=== PATIENT | female | born 1940 | race Caucasian/White ===

== ENCOUNTER → 2016-09-06 | Outpatient (CLI) | payer MEDICARE ==
[~2016-09-06] MED LIST: DENOSUMAB 60 MG/ML 1 ML SYRINGE SQ ONE
[2016-09-06 10:09] VITALS: BP 141/77; PULSE 71; RESP 15; TEMP 98.8
== END | disposition home or self-care (01) ==
LOC: PROCWHC3 09:51
PROVIDERS: ATTEND Family Medicine
DX: M81.0 Age-related osteoporosis without current pathological fracture (principal)
CPT/HCPCS: 96372; J0897

== ENCOUNTER → 2017-03-13 | Outpatient (CLI) | payer MEDICARE ==
[2017-03-13 12:18] LABS: CH 29.4; CHCM 32.7; HDW 2.38; HGB 14.5 gm/dL (11.4-16.0); MCH 29.9 pg (25.0-35.0); MCHC 32.9 g/dL (31.0-37.0); MCV 90.6 fL (80.0-100.0); Mean Platelet Volume 7.6; RBC 4.85 m/uL (3.80-5.40); RDW 13.5 % (11.5-15.5); WBC 5.6 k/uL (3.8-10.6)
[2017-03-13 13:59] LABS: ALT 41 U/L (9-52); AST 26 U/L (14-36); Alkaline Phosphatase 68 U/L (38-126); Anion Gap 6 mmol/L; Blood Urea Nitrogen 15 mg/dL (7-17); Calcium 9.4 mg/dL (8.4-10.2); Carbon Dioxide 28 mmol/L (22-30); Chloride 108 mmol/L (98-107); Cholesterol 170 mg/dL (<200); Glucose 104 mg/dL (74-99); HDL Cholesterol 66 mg/dL (40-60); Non-African American GFR(MDRD) >60 (>60 ml/min/1.73 sqM); Potassium 4.4 mmol/L (3.5-5.1); Sodium 142 mmol/L (137-145); Total Bilirubin 0.8 mg/dL (0.2-1.3); Total Protein 6.6 g/dL (6.3-8.2)
== END | disposition home or self-care (01) ==
LOC: LABWHC1 11:38
PROVIDERS: ATTEND Family Medicine
DX: E78.2 Mixed hyperlipidemia (principal); E03.9 Hypothyroidism, unspecified
CPT/HCPCS: 36415; 80053; 80061; 84439; 84443; 84481; 85027

== ENCOUNTER → 2017-03-14 | Outpatient (CLI) | payer MEDICARE ==
[2017-03-14 11:11] VITALS: BP 149/73; PULSE 73; RESP 16; TEMP 98.6
== END | disposition home or self-care (01) ==
LOC: PROCWHC3 10:44
PROVIDERS: ATTEND Family Medicine
DX: M81.0 Age-related osteoporosis without current pathological fracture (principal)
CPT/HCPCS: 96372; J0897

== ENCOUNTER → 2017-09-20 | Outpatient (CLI) | payer MEDICARE ==
[2017-09-20 11:08] VITALS: BP 182/86; PULSE 61; RESP 16; TEMP 98.2
== END | disposition home or self-care (01) ==
LOC: PROCWHC3 10:49
PROVIDERS: ATTEND Family Medicine
DX: M81.0 Age-related osteoporosis without current pathological fracture (principal)
CPT/HCPCS: 96372; J0897

== ENCOUNTER → 2018-03-21 | Outpatient (CLI) | payer MEDICARE ==
--- NOTE | 2018-03-21 18:30 | BD ---
EXAMINATION TYPE: Axial Bone Density DATE OF EXAM: 03/21/2018 COMPARISON: NONE CLINICAL HISTORY: 77-year-old female known osteoporosis Height: 5'3 Weight: 140 FRAX RISK QUESTIONS: History of Fracture in Adulthood: y Secondary Osteoporosis: 3. Menopause before 47: y RISK FACTORS HISTORY OF: Family History of Osteoporosis: y Postmenopausal woman: y MEDICATIONS: Thyroid Medications: Which medication: Synthroid How Lon years Osteoporosis Medications: Which medication: Other How Lon years Additional Medications: calcium, jittery, heart , blood pressure Additional History: breast cancer 2010, chemotherapy EXAM MEASUREMENTS: Bone mineral densitometry was performed using the [employer] System. Bone mineral density as measured about the Lumbar spine is: ----- L1-L4(G/cm2): 0.963 T Score Values are as follows: ----- L2: -2.1 ----- L3: -2.3 ----- L4: -1.8 ----- L1-L4: -1.8 Bone mineral density about the R hip (g/cm2): 0.740 Bone mineral density about the L hip (g/cm2): 0.765 T Score values are as follows: -----R Neck: -2.1 -----L Neck: -2.0 -----R Total: -1.7 -----L Total: -1.3 IMPRESSION: Osteopenia (T Score between -2.5 and -1). There is slightly increased risk of fracture and the patient may be considered for treatment. Re-Screen 2-5 years. NOTE: T-SCORE=SD OF THE YOUNG ADULT MEAN.
== END | disposition home or self-care (01) ==
LOC: RADBDWWP 14:34
PROVIDERS: ATTEND Family Medicine
DX: M81.0 Age-related osteoporosis without current pathological fracture (principal)
CPT/HCPCS: 77080

== ENCOUNTER → 2018-03-25 | Outpatient (CLI) | payer MEDICARE ==
[~2018-03-25] MED LIST changes: +DENOSUMAB 60 MG/ML 1 ML SYRINGE SQ NR; -DENOSUMAB 60 MG/ML 1 ML SYRINGE SQ ONE
[2018-03-25 13:01] VITALS: BP 145/82; PULSE 85; RESP 16; TEMP 98.4
== END | disposition home or self-care (01) ==
LOC: PROCWHC3 12:40
PROVIDERS: ATTEND Family Medicine
DX: M81.0 Age-related osteoporosis without current pathological fracture (principal)
CPT/HCPCS: 96372; J0897

== ENCOUNTER → 2018-09-24 | Outpatient (CLI) | payer MEDICARE ==
[~2018-09-24] MED LIST changes: -DENOSUMAB 60 MG/ML 1 ML SYRINGE SQ NR; +DENOSUMAB 60 MG/ML 1 ML SYRINGE SQ ONE
[2018-09-24 11:09] VITALS: BP 148/78; PULSE 72; RESP 16; TEMP 98.4
== END | disposition home or self-care (01) ==
LOC: PROCWHC3 10:51
PROVIDERS: ATTEND Family Medicine
DX: M81.0 Age-related osteoporosis without current pathological fracture (principal)
CPT/HCPCS: 96372; J0897

== ENCOUNTER → 2019-01-21 | Outpatient (CLI) | payer MEDICARE ==
--- NOTE | 2019-01-21 14:14 | CT ---
EXAMINATION TYPE: CT sinus wo con DATE OF EXAM: 01/21/2019 COMPARISON: None HISTORY: 78-year-old female Chronic sinusitis. CT DLP: 490 mGycm Automated exposure control for dose reduction was used. TECHNIQUE: Noncontrast axial views of the paranasal sinuses were obtained. Coronal reconstructions pe rformed. FINDINGS: PARANASAL SINUSES: Trace mucosal thickening anterior ethmoid air cells. Mild mucosal thickening bilateral sphenoid sinuses. Some layering frothy material may be present with in. Otherwise, the frontal and maxillary sinuses are clear and well pneumatized. Reactive paula- osteogenesis is not seen. There is no destruction of the osseous go of the paranasal sinuses. THE NASAL CAVITY: The osteomeatal complexes are patent. Undulating nasal septum. The visualized intracranial structures and orbits are normal in appearance. Mastoid air cells and middle ear cavities are well pneumatized. Reformatted images confirm above findings. IMPRESSION: 1. Some frothy layering fluid in the bilateral sphenoid sinuses can be seen with an acute sinusitis. Clinically correlate. 2. Otherwise, there is only trace mucosal thickening within the anterior right ethmoid air cells. 3. Undulating nasal septum
== END | disposition home or self-care (01) ==
LOC: RADCTMAIN 10:56
PROVIDERS: ATTEND Otolaryngology
DX: J01.30 Acute sphenoidal sinusitis, unspecified (principal); J34.89 Other specified disorders of nose and nasal sinuses
CPT/HCPCS: 70486

== ENCOUNTER → 2019-04-02 | Outpatient (CLI) | payer MEDICARE ==
[2019-04-02 11:12] VITALS: BP 133/79; PULSE 75; RESP 16; TEMP 98.1
== END | disposition home or self-care (01) ==
LOC: PROCWHC3 10:47
PROVIDERS: ATTEND Family Medicine
DX: M81.0 Age-related osteoporosis without current pathological fracture (principal)

== ENCOUNTER 2019-10-30 17:11 | Emergency (ER) | payer MEDICARE ==
[2019-10-30 17:37] VITALS: RESP 18
[2019-10-30] MEDS ORDERED: ACETAMINOPHEN TAB 500 MG TAB PO STA (17:49)
[2019-10-30] MEDS ORDERED: SODIUM CHLORIDE 0.9% 1,000 ML IV STA (17:49)
--- NOTE | 2019-10-30 17:56 | ED ---
Fever HPI - General Chief Complaint: Fever Stated Complaint: fever/diarrhea Time Seen by Provider: 10/30/19 17:39 Source: patient Mode of arrival: ambulatory Limitations: no limitations - History of Present Illness Initial Comments: Patient is 78-year-old female presenting to emergency Department with a chief complaint of a fever and diarrhea. Patient states the symptoms began about 2 days ago when she developed a fever. Patient reports that after she had nonbloody diarrhea but denies nausea or vomiting. States she is feeling generally fatigued. States she is otherwise been hydrating with Gatorade and taking Tylenol at home. States her daughter recently came back from [place] but but is unaware whether she was infected with Covid. She also reports a mild headache with gradual onset since yesterday. Patient states her mouth feels dry. Patient denies and chest pain, cough, shortness of breath. Denies any abdominal pain back pain vaginal or urinary symptoms. - Related Data Home Medications Medication Instructions Recorded Confirmed Levothyroxine Sodium [Synthroid] 100 mcg PO DAILY 04/02/14 10/30/19 Primidone [Mysoline] 50 mg PO TID 04/02/14 10/30/19 Simvastatin 20 mg PO DAILY 04/02/14 10/30/19 Alendronate Sodium 70 mg PO FR 10/30/19 10/30/19 Atenolol [Tenormin] 50 mg PO DAILY 10/30/19 10/30/19 Fluticasone/Salmeterol [Advair 1 inhalation PO RT-BID 10/30/19 10/30/19 250-50 Diskus] amLODIPine [Norvasc] 10 mg PO DAILY 10/30/19 10/30/19 Allergies Allergy/AdvReac Type Severity Reaction Status Date / Time No Known Allergies Allergy Verified 10/30/19 18:41 Review of Systems ROS Statement: Those systems with pertinent positive or pertinent negative responses have been documented in the HPI. ROS Other: All systems not noted in ROS Statement are negative. Past Medical History Past Medical History: Asthma, Cancer, Deep Vein Thrombosis (DVT), Hyperlipidemia, Hypertension, Osteoarthritis (OA), Thyroid Disorder Additional Past Medical History / Comment(s): TREMORS, HANDS. Rt breast cancer - 2010/chemo hx DVT -PE 2009 after rt knee arthroscope. OSTEOPOROSIS. History of Any Multi-Drug Resistant Organisms: None Reported Past Surgical History: Breast Surgery, Cholecystectomy, Hernia Repair, Hysterectomy, Orthopedic Surgery, Tonsillectomy Additional Past Surgical History / Comment(s): RIGHT MASTECTOMY. rt inguinal hernia repair- 1969's. RK EYE SURGERY. Past Anesthesia/Blood Transfusion Reactions: Postoperative Nausea & Vomiting (PONV) Additional Past Anesthesia/Blood Transfusion Reaction / Comment(s): post sugery- 1973/ choley/ jaundice - and had blood transfusion Past Psychological History: No Psychological Hx Reported Smoking Status: Never smoker Past Alcohol Use History: Occasional Past Drug Use History: None Reported - Past Family History Father Family Medical History: Cancer Sister(s) Family Medical History: Cancer Son(s) Family Medical History: Cancer Additional Family Medical History / Comment(s): melanoma General Exam Limitations: no limitations General appearance: alert, in no apparent distress Head exam: Present: atraumatic, normocephalic, normal inspection Eye exam: Present: normal appearance, PERRL, EOMI Pupils: Present: normal accommodation ENT exam: Present: normal exam, normal oropharynx, mucous membranes dry, TM's normal bilaterally, normal external ear exam Neck exam: Present: normal inspection, full ROM. Absent: tenderness Respiratory exam: Present: normal lung sounds bilaterally. Absent: respiratory distress, wheezes Cardiovascular Exam: Present: regular rate, normal rhythm, normal heart sounds GI/Abdominal exam: Present: soft, normal bowel sounds. Absent: distended, tenderness, guarding, rebound, rigid, diminished bowel sounds, hyperactive bowel sounds, hypoactive bowel sounds, organomegaly Extremities exam: Present: normal inspection, full ROM, normal capillary refill. Absent: tenderness Back exam: Present: normal inspection, full ROM. Absent: tenderness, CVA t enderness (R), CVA tenderness (L) Neurological exam: Present: alert, oriented X3 Psychiatric exam: Present: normal affect, normal mood Skin exam: Present: warm, dry, intact, normal color Course Vital Signs 10/30/19 10/30/19 10/30/19 17:34 18:09 18:42 Temperature 103.1 F H 102.0 F H Pulse Rate 101 H 103 H 98 Respiratory 18 18 18 Rate Blood Pressure 138/81 154/77 144/69 O2 Sat by Pulse 93 L 95 93 L Oximetry Medical Decision Making - Medical Decision Making Patient is 78-year-old female presenting to emergency Department with a chief complaint of fever and diarrhea. Symptoms been ongoing for the past 2 days. Patient was given 1 L of fluids and she states that she feels much better. States her headache is gradually improved. I suspect the fatigue is secondary to dehydration with trace ketones located in the urine. CBC and CMP is unremarkable. Chest x-ray shows cardiomegaly but no signs of pneumonia. Strict return parameters were thoroughly discussed with patient was understanding and agreeable. She was advised several isolate to self isolate until she received results of the cardiac testing. She was advised to continue taking Tylenol only for the fever. She was advised to drink plenty of fluids, preferably Pedialyte or Gatorade. Return parameters were thoroughly discussed the patient is icing and agreeable. Case discussed with physician. - Lab Data Result diagrams: 10/30/19 18:00 10/30/19 18:00 Lab Results 10/30/19 10/30/19 10/30/19 Range/Units 18:00 18:00 18:00 WBC 9.6 (3.8-10.6) k/uL RBC 4.95 (3.80-5.40) m/uL Hgb 15.1 (11.4-16.0) gm/dL Hct 45.3 (34.0-46.0) % MCV 91.5 (80.0-100.0) fL MCH 30.6 (25.0-35.0) pg MCHC 33.4 (31.0-37.0) g/dL RDW 13.1 (11.5-15.5) % Plt Count 177 (150-450) k/uL Neutrophils % 81 % Lymphocytes % 12 % Monocytes % 5 % Eosinophils % 1 % Basophils % 0 % Neutrophils # 7.7 (1.3-7.7) k/uL Lymphocytes # 1.1 (1.0-4.8) k/uL Monocytes # 0.5 (0-1.0) k/uL Eosinophils # 0.1 (0-0.7) k/uL Basophils # 0.0 (0-0.2) k/uL Sodium 136 L (137-145) mmol/L Potassium 3.6 (3.5-5.1) mmol/L Chloride 102 (98-107) mmol/L Carbon Dioxide 26 (22-30) mmol/L Anion Gap 8 mmol/L BUN 10 (7-17) mg/dL Creatinine 0.73 (0.52-1.04) mg/dL Est GFR (CKD-EPI)AfAm >90 (>60 ml/min/1.73 sqM) Est GFR (CKD-EPI)NonAf 81 (>60 ml/min/1.73 sqM) Glucose 126 H (74-99) mg/dL Plasma Lactic Acid Andi 1.0 (0.7-2.0) mmol/L Calcium 9.3 (8.4-10.2) mg/dL Total Bilirubin 0.8 (0.2-1.3) mg/dL AST 39 H (14-36) U/L ALT 29 (4-34) U/L Alkaline Phosphatase 86 (38-126) U/L Total Protein 6.8 (6.3-8.2) g/dL Albumin 4.2 (3.5-5.0) g/dL Urine Color Urine Appearance (Clear) Urine pH (5.0-8.0) Ur Specific [place] (1.001-1.035) Urine Protein (Negative) Urine Glucose (UA) (Negative) Urine Ketones (Negative) Urine Blood (Negative) Urine Nitrite (Negative) Urine Bilirubin (Negative) Urine Urobilinogen (<2.0) mg/dL Ur Leukocyte Esterase (Negative) Urine RBC (0-5) /hpf Urine WBC (0-5) /hpf Ur Squamous Epith Cells (0-4) /hpf Urine Mucus (None) /hpf 10/30/19 Range/Units 18:00 WBC (3.8-10.6) k/uL RBC (3.80-5.40) m/uL Hgb (11.4-16.0) gm/dL Hct (34.0-46.0) % MCV (80.0-100.0) fL MCH (25.0-35.0) pg MCHC (31.0-37.0) g/dL RDW (11.5-15.5) % Plt Count (150-450) k/uL Neutrophils % % Lymphocytes % % Monocytes % % Eosinophils % % Basophils % % Neutrophils # (1.3-7.7) k/uL Lymphocytes # (1.0-4.8) k/uL Monocytes # (0-1.0) k/uL Eosinophils # (0-0.7) k/uL Basophils # (0-0.2) k/uL Sodium (137-145) mmol/L Potassium (3.5-5.1) mmol/L Chloride (98-107) mmol/L Carbon Dioxide (22-30) mmol/L Anion Gap mmol/L BUN (7-17) mg/dL Creatinine (0.52-1.04) mg/dL Est GFR (CKD-EPI)AfAm (>60 ml/min/1.73 sqM) Est GFR (CKD-EPI)NonAf (>60 ml/min/1.73 sqM) Glucose (74-99) mg/dL Plasma Lactic Acid Andi (0.7-2.0) mmol/L Calcium (8.4-10.2) mg/dL Total Bilirubin (0.2-1.3) mg/dL AST (14-36) U/L ALT (4-34) U/L Alkaline Phosphatase (38-126) U/L Total Protein (6.3-8.2) g/dL Albumin (3.5-5.0) g/dL Urine Color Yellow Urine Appearance Clear (Clear) Urine pH 7.0 (5.0-8.0) Ur Specific [place] 1.017 (1.001-1.035) Urine Protein 1+ H (Negative) Urine Glucose (UA) Negative (Negative) Urine Ketones Negative (Negative) Urine Blood Trace H (Negative) Urine Nitrite Negative (Negative) Urine Bilirubin Negative (Negative) Urine Urobilinogen <2.0 (<2.0) mg/dL Ur Leukocyte Esterase Trace H (Negative) Urine RBC 5 (0-5) /hpf Urine WBC 3 (0-5) /hpf Ur Squamous Epith Cells 1 (0-4) /hpf Urine Mucus Rare H (None) /hpf Disposition Clinical Impression: Fever, Diarrhea Disposition: HOME SELF-CARE Condition: Stable Instructions (If sedation given, give patient instructions): Fever in Adults (E D) Additional Instructions: Drink plenty of fluids, preferably Gatorade or Pedialyte. Self-isolation until you receive results of Covid testing. Take Tylenol only for fever. Return to emergency department if symptoms worsen. Follow with the primary care. Is patient prescribed a controlled substance at d/c from ED?: No Referrals: José Manuel Correa MD [Primary Care Provider] - 1-2 days Time of Disposition: 19:04
[2019-10-30 18:10] LABS: Basophils % (A) 0 %; Eosinophils # (A) 0.1 k/uL (0-0.7); Eosinophils % (A) 1 %; HCT 45.3 % (34.0-46.0); HGB 15.1 gm/dL (11.4-16.0); Lymphocytes # (A) 1.1 k/uL (1.0-4.8); Lymphocytes % (A) 12 %; MCH 30.6 pg (25.0-35.0); MCHC 33.4 g/dL (31.0-37.0); MCV 91.5 fL (80.0-100.0); Mean Platelet Volume 7.8; Monocytes # (A) 0.5 k/uL (0-1.0); Monocytes % (A) 5 %; Neutrophils # (A) 7.7 k/uL (1.3-7.7); Neutrophils % (A) 81 %; Platelet Count 177 k/uL (150-450); RBC 4.95 m/uL (3.80-5.40); RDW 13.1 % (11.5-15.5); WBC 9.6 k/uL (3.8-10.6)
[2019-10-30 18:15] LABS: Appearance,Urine Clear (Clear); Bilirubin,Urine Negative (Negative); Blood,Urine Trace (Negative); Color,Urine Yellow; Glucose,Urine (UA) Negative (Negative); Ketones,Urine Negative (Negative); Leukocyte Esterase,Urine Trace (Negative); Mucus,Urine Rare /hpf; Nitrite,Urine Negative (Negative); Protein,Urine 1+ (Negative); RBC,Urine 5 /hpf (0-5); Specific Gravity,Urine 1.017 (1.001-1.035); Squamous Epithelial Cell,Urine 1 /hpf (0-4); Urobilinogen,Urine <2.0 mg/dL (<2.0); WBC,Urine 3 /hpf (0-5)
[2019-10-30 18:24] LABS: ALT 29 U/L (4-34); AST 39 U/L (14-36); African American GFR (CKD) >90 (>60 ml/min/1.73 sqM); Albumin 4.2 g/dL (3.5-5.0); Alkaline Phosphatase 86 U/L (38-126); Anion Gap 8 mmol/L; Blood Urea Nitrogen 10 mg/dL (7-17); Calcium 9.3 mg/dL (8.4-10.2); Carbon Dioxide 26 mmol/L (22-30); Chloride 102 mmol/L (98-107); Glucose 126 mg/dL (74-99); Non-African American GFR(CKD) 81 (>60 ml/min/1.73 sqM); Potassium 3.6 mmol/L (3.5-5.1); Sodium 136 mmol/L (137-145); Total Bilirubin 0.8 mg/dL (0.2-1.3); Total Protein 6.8 g/dL (6.3-8.2)
--- NOTE | 2019-10-30 18:24 | XR ---
EXAMINATION TYPE: XR chest 1V portable DATE OF EXAM: 10/30/2019 COMPARISON: Prior chest x-ray 11/28/2010 HISTORY: Suspected Covid, fever and diarrhea TECHNIQUE: Single frontal view of the chest is obtained. FINDINGS: No evident airspace disease, pneumothorax, or pleural effusion. Heart size may be accentua adelfo at least in part by rotation. Port-A-Cath has been removed. Pulmonary vascularity and ty are un changed. IMPRESSION: Suspect cardiomegaly.
[2019-10-30 19:29] VITALS: BP 128/71; PULSE 93; TEMP 102.4
== END 2019-10-30 19:28 | disposition home or self-care (01) ==
LOC: EC 17:11
DX: R50.9 Fever, unspecified (principal); R19.7 Diarrhea, unspecified; R51 Headache; R53.83 Other fatigue; I11.9 Hypertensive heart disease without heart failure; E07.9 Disorder of thyroid, unspecified; E78.5 Hyperlipidemia, unspecified; J45.909 Unspecified asthma, uncomplicated; Z79.51 Long term (current) use of inhaled steroids; Z79.890 Hormone replacement therapy; Z79.899 Other long term (current) drug therapy; Z86.711 Personal history of pulmonary embolism; Z86.718 Personal history of other venous thrombosis and embolism; Z85.3 Personal history of malignant neoplasm of breast; Z90.11 Acquired absence of right breast and nipple
CPT/HCPCS: 99283; 96360; 36415; 80053; 83605; 85025; 81001; 87040; 71045; U0003

== ENCOUNTER → 2021-10-25 | Outpatient (CLI) | payer MEDICARE ==
--- NOTE | 2021-10-25 14:06 | US ---
EXAMINATION TYPE: US venous doppler duplex LE RT DATE OF EXAM: 10/25/2021 1:16 PM COMPARISON: NONE CLINICAL HISTORY: I80.9 M54.16 M17.11 M25.561 M17.12 M25.562 M71.21. Right leg pain. Hx dvt x 10 yea rs ago. Not on blood thinners. No redness. No swelling. SIDE PERFORMED: Right TECHNIQUE: The lower extremity deep venous system is examined utilizing real time linear array sonog jose m with graded compression, doppler sonography and color-flow sonography. VESSELS IMAGED: Common Femoral Vein Deep Femoral Vein Greater Saphenous Vein * Femoral Vein Popliteal Vein Small Saphenous Vein * Proximal Calf Veins (* superficial vessels) Right Leg: Negative for DVT. Femoral vein appears small in size. IMPRESSION: No evidence for DVT.
== END | disposition home or self-care (01) ==
LOC: RADUSWWP 12:51
PROVIDERS: ATTEND Orthopaedic Surgery
DX: M25.561 Pain in right knee (principal); M71.21 Synovial cyst of popliteal space [Baker], right knee

== ENCOUNTER → 2022-11-10 | Outpatient (CLI) | payer MEDICARE ==
[2022-11-10 15:19] LABS: African American GFR (CKD) 85 (>60 ml/min/1.73 sqM); Blood Urea Nitrogen 19 mg/dL (7-17); Non-African American GFR(CKD) 74 (>60 ml/min/1.73 sqM)
--- NOTE | 2022-11-12 21:53 | CT ---
EXAMINATION TYPE: CT angio neck DATE OF EXAM: 11/10/2022 COMPARISON: None HISTORY: 81-year-old female I72.0, right neck anterior nodule TECHNIQUE: Contiguous axial scanning of the neck performed with IV Contrast, patient injected with 10 0 mL of Isovue 370. Coronal/sagittal reconstructions performed. 3-D reconstructions generated on a de dicated independent workstation. CT DLP: 222.2 mGycm Automated exposure control for dose reduction was used. FINDINGS: 1.1 cm nodule inferior right thyroid lobe. Right apical pleural parenchymal scarring. There is some nodularity along the left lingual tonsil and along the median epiglottic fold, axial im age 89. Moderate mucosal thickening left sphenoid sinus with small air-fluid level. Slight leftward nasal sep anuja deviation. Patient's globes are myopic. Mildly enlarged caliber to the main right and left pulmonary arteries measuring up to 2.8 cm may refl ect underlying pulmonary artery hypertension. Underlying breast implants. The vertebral arteries are codominant and patent throughout their course. The right vertebral artery becomes hypoplastic after the PICA takeoff. There is mild atherosclerotic change at the left carotid bifurcation with mild, less than 25% narrowi ng at the origin of the left ICA by NASCET criteria. Otherwise, both common and internal carotid arteries are patent. The proximal right internal carotid artery is tortuous and courses anterior to the right sternocleido mastoid muscle. Overlying palpable marker. Mild to moderate spondylotic change which the lower cervical spine. IMPRESSION: 1. MILD ATHEROSCLEROTIC CHANGE AT THE LEFT CAROTID BIFURCATION WITH MILD, LESS THAN 25% PROXIMAL LEFT ICA STENOSIS. NO HEMODYNAMICALLY SIGNIFICANT INTERNAL CAROTID ARTERY STENOSIS ON EITHER SIDE. 2. TORTUOUS PROXIMAL RIGHT ICA. IT COURSES ANTERIOR TO THE RIGHT STERNOCLEIDOMASTOID MUSCLE IN A SUPE RFICIAL LOCATION. THERE IS AN OVERLYING PALPABLE MARKER. 3. 1.1 CM INFERIOR RIGHT THYROID LOBE NODULE CAN BE FURTHER EVALUATED WITH THYROID ULTRASOUND. 4. SLIGHT NODULARITY ALONG THE MEDIAN EPIGLOTTIC FOLD. CONSIDER DIRECT VISUALIZATION TO EXCLUDE ANY M UCOSAL LESION HERE. 5. POSSIBLE ACUTE ON CHRONIC LEFT SPHENOID SINUSITIS.
== END | disposition home or self-care (01) ==
LOC: RADCTMAIN 14:25
PROVIDERS: ATTEND Internal Medicine Geriatric Medicine
DX: I72.0 Aneurysm of carotid artery (principal)
CPT/HCPCS: 82565; 84520; 70498; 36415; Q9967

== ENCOUNTER → 2022-11-29 | Outpatient (CLI) | payer MEDICARE ==
[2022-11-29 11:14] LABS: African American GFR (CKD) 89 (>60 ml/min/1.73 sqM); Blood Urea Nitrogen 21 mg/dL (7-17); Non-African American GFR(CKD) 77 (>60 ml/min/1.73 sqM)
--- NOTE | 2022-11-29 11:48 | CT ---
EXAMINATION TYPE: CT chest w con DATE OF EXAM: 11/29/2022 COMPARISON: None HISTORY: Pulmonary nodule Automated exposure control for dose reduction was used. CONTRAST: CT scan of the chest is performed with IV Contrast, patient injected with 100 mL of Isovue 300. FINDINGS: LUNGS: Left basilar pulmonary nodule measuring 6.5 mm. No additional pulmonary nodularity seen. Mild hyperinflation with COPD. There is no pleural effusion or pneumothorax seen. The tracheobronchial tr ee is patent. MEDIASTINUM: There are no greater than 1 cm hilar or mediastinal lymph nodes. No pericardial effusi on is seen. 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 Mild scattered atheromatous changes seen. The hea rt is not enlarged. UPPER ABDOMEN: Left hepatic lobe pneumobilia. OTHER: Right-sided mastectomy changes implant in place. IMPRESSION: 1. Left basilar solitary pulmonary nodule. Six-month follow-up recommended with low dose CT.
== END | disposition home or self-care (01) ==
LOC: RADCTMAIN 09:55
PROVIDERS: ATTEND Family Medicine
DX: R91.1 Solitary pulmonary nodule (principal)
CPT/HCPCS: 82565; 84520; 71260; 36415; Q9967

== ENCOUNTER → 2023-12-05 | Outpatient (CLI) | payer MEDICARE ==
--- NOTE | 2024-01-02 15:10 | US ---
Lana Day ID: [id number] : 1940 EXAMINATION TYPE: US carotid duplex BILAT DATE OF EXAM: 12/05/2023 COMPARISON: NONE CLINICAL INDICATION: 83-year-old female left carotid stenosis, history of high blood pressure and hig h cholesterol TECHNIQUE: Carotid duplex ultrasound examination. Indirect Doppler criteria was utilized. FINDINGS: EXAM MEASUREMENTS: RIGHT: Peak Systolic Velocity (PSV) cm/sec ----- Right CCA: 73.4 ----- Right ICA: 135 ----- Right ECA: 79.9 ICA/CCA ratio: 1.5 RIGHT: End Diastole cm/sec ----- Right CCA: 17.5 ----- Right ICA: 24.0 ----- Right ECA: 11.0 LEFT: Peak Systolic Velocity (PSV) cm/sec ----- Left CCA: 86.3 ----- Left ICA: 85.8 ----- Left ECA: 70.9 ICA/CCA ratio: 0.9 LEFT: End Diastole cm/sec ----- Left CCA: 19.7 ----- Left ICA: 80.4 ----- Left ECA: 8.4 VERTEBRALS (direction of flow): Right Vertebral: Antegrade Left Vertebral: Antegrade MANAGEMENT INSTRUCTOR NOTES: Mild atherosclerotic plaque within the bilateral carotid bulbs. IMPRESSION: No hemodynamically significant internal carotid artery stenosis on either side. Mild, less than 50% n arrowing right ICA. Criteria for Assigning % of Stenosis / Diameter reduction (Estimation based on the indirect measurements of the internal carotid artery velocities (ICA PSV). 1. Normal (no stenosis)=ICA PSV < 125 cm/s: ratio < 2.0: ICA EDV<40 cm/s. 2. Less than 50% stenosis=ICA PSV < 125 cm/s: ratio < 2.0: ICA EDV<40 cm/s. 3. 50 to 69% stenosis=ICA PSV of 125 to 230 cm/s: ration 2.0 ? 4.0: ICA EDV 40-100 cm/s. 4. Greater than 70% stenosis to near occlusion= ICA PSV > 230 cm/s: ratio > 4.0: ICA EDV > 100 cm/s. 5. Near occlusion= ICA PSV velocities may be low or undetectable: variable ratio and ICA EDV. 6. Total occlusion=unable to detect flow.
== END | disposition home or self-care (01) ==
LOC: RADUSWWP 18:11
PROVIDERS: ATTEND Family Medicine
DX: I65.22 Occlusion and stenosis of left carotid artery (principal); E78.00 Pure hypercholesterolemia, unspecified
CPT/HCPCS: 93880

== ENCOUNTER → 2024-02-15 | Outpatient (CLI) | payer MEDICARE ==
[2024-02-15 13:13] LABS: African American GFR (CKD) >90 (>60 ml/min/1.73 sqM); Blood Urea Nitrogen 12 mg/dL (7-17); Non-African American GFR(CKD) 82 (>60 ml/min/1.73 sqM)
--- NOTE | 2024-02-15 14:13 | CT ---
EXAMINATION TYPE: CT chest w con CT DLP: 143.5 mGycm, Automated exposure control for dose reduction was used. DATE OF EXAM: 02/15/2024 2:03 PM COMPARISON: CT chest 11/29/2022 CLINICAL INDICATION:Female, 83 years old with history of R91.1 SOLITARY PULM NOD; PHH, f/u nodules TECHNIQUE: Multiple axial images were obtained through the chest following the administration of 100 cc of Isovue 300. . Coronal and sagittal reformats reviewed. FINDINGS: LUNGS/ PLEURA: No pleural effusion, pneumothorax, focal consolidation. Mild centrilobular emphysemato us changes. Minimal biapical pleural-parenchymal scarring. Stable right middle lobe 4 mm pulmonary n odule (series 4, image 47). New anterior right middle lobe 6.4 mm pulmonary nodule (series 4, image 4 2). New peripheral right upper lobe 4.5 mm pulmonary nodule (series 4, image 23). Stable left lower l obe 7.1 mm pulmonary nodule (series 4, image 53). AIRWAY: Patent and unremarkable.. HEART: The heart is mildly increased in size.. No pericardial effusion. MEDIASTINUM: No evidence of adenopathy. VASCULATURE: No aortic aneurysm. Stable ectasia of the ascending thoracic aorta measuring up to 3.8 cm. Mild atherosclerotic calcification of the aorta and its branches. MUSCULOSKELETAL: No acute osseous abnormalities. Mild multilevel degenerative disc disease. SOFT TISSUES/LYMPH NODES: Right mastectomy with breast implant. LOWER NECK: Hypodense right inferior thyroid lobe 8 mm nodule. Adjacent right macrocalcification. UPPER ABDOMEN: Postcholecystectomy changes with pneumobilia redemonstrated. IMPRESSION: Few stable pulmonary nodules with new right middle and right upper lobe pulmonary nodules with larges t measuring up to 6.4 mm. Follow-up CT chest in 3-6 months is recommended. [facility], , 02/15/2024 2:11 PM
== END | disposition home or self-care (01) ==
LOC: RADCTMAIN 12:25
PROVIDERS: ATTEND Family Medicine
DX: R91.8 Other nonspecific abnormal finding of lung field (principal)
CPT/HCPCS: 82565; 84520; 71260; 36415; Q9967

== ENCOUNTER → 2024-07-21 | Outpatient (CLI) | payer MEDICARE ==
[2024-07-21 10:35] LABS: African American GFR (CKD) >90 (>60 ml/min/1.73 sqM); Blood Urea Nitrogen 10 mg/dL (7-17); Non-African American GFR(CKD) 86 (>60 ml/min/1.73 sqM)
--- NOTE | 2024-07-21 12:36 | CT ---
EXAMINATION TYPE: CT chest w con DATE OF EXAM: 07/21/2024 COMPARISON: Prior chest CT February 15, 2024 and older study of November 29, 2022 CLINICAL INDICATION: Female, 83 years old with history of R91.1 LUNG NODULE, F/U LUNG NODULE TECHNIQUE: CT scan of the thorax is performed following with IV Contrast, patient injected with 100m l mL of Isovue 300. CT DLP: 250 mGycm. Automated Exposure Control for Dose Reduction was Utilized. FINDINGS: LUNGS: Mild Emphysematous change is redemonstrated. Minimal right apical pleural-parenchymal scarring . Stable right middle lobe 4 mm pulmonary nodule (series 4, image 46). Less prominent anterior right middle lobe 3-4 mm pulmonary nodule (series 4, image 42). Stable left basilar 7 mm pulmonary nodule (series 4, image 50). . Mild parenchymal fibrosis bilaterally redemonstrated. No new greater than 4 mm noncalcified pulmona ry nodules. HEART: Mild cardiomegaly redemonstrated. No significant coronary artery calcifications. MEDIASTINUM: There are no greater than 1 cm hilar or mediastinal lymph nodes. No pericardial effusi on is seen. Pectus excavatum deformity again seen. OTHER: Right-sided breast implant redemonstrated. Heterogeneous multinodular thyroid with bilateral t iny calcified nodules is redemonstrated. Stable 1.2 cm ring enhancing lower pole right thyroid nodule coronal image 28. IMPRESSION: Stable scattered small bilateral nodules. No suspicious new or enlarging pulmonary nodule s. [facility], , 07/21/2024 12:33 PM
== END | disposition home or self-care (01) ==
LOC: RADCTMAIN 09:50
PROVIDERS: ATTEND Family Medicine
DX: R91.1 Solitary pulmonary nodule (principal); I51.7 Cardiomegaly
CPT/HCPCS: 82565; 84520; 71260; 36415; Q9967

== ENCOUNTER → 2024-07-24 | Outpatient (CLI) | payer MEDICARE ==
--- NOTE | 2024-07-24 15:58 | US ---
EXAMINATION TYPE: US kidneys/renal and bladder DATE OF EXAM: 07/24/2024 COMPARISON: NONE CLINICAL INDICATION: Female, 83 years old with history of N20.0 CALCULUS OF KIDNEY; small stone, unsu re which kidney, no symptomatic TECHNIQUE: Grayscale imaging of the bilateral kidneys and urinary bladder: FINDINGS: EXAM MEASUREMENTS: Right Kidney: 10.1 x 3.9 x 3.7 cm Left Kidney: 10.1 x 4.0 x 4.6 cm Right Kidney: mild hydronephrosis Left Kidney: No hydronephrosis or masses seen Bladder: wnl IMPRESSION: 1. Mild right hydronephrosis. Obstructing etiology is not identified. Consider additional workup [facility], , 07/24/2024 3:56 PM
== END | disposition home or self-care (01) ==
LOC: RADUSWWP 07-23 13:54
PROVIDERS: ATTEND Internal Medicine Geriatric Medicine
DX: N13.2 Hydronephrosis with renal and ureteral calculous obstruction (principal)
CPT/HCPCS: 76770

== ENCOUNTER → 2024-08-25 | Outpatient (CLI) | payer MEDICARE ==
--- NOTE | 2024-08-25 15:40 | CT ---
EXAMINATION TYPE: CT abdomen pelvis wo con CT DLP: 504 mGycm, Automated exposure control for dose reduction was used. DATE OF EXAM: 08/25/2024 3:23 PM COMPARISON: CT chest 07/21/2024, 02/15/2024, 11/29/2022 renal ultrasound 07/24/2024 CLINICAL INDICATION:Female, 83 years old with history of N20.0 CALCULUS OF KIDNEY N13.30 UNSPEC HYDRO NEPHRO; UTI, stones, hydronephrosis TECHNIQUE: Standard CT of the abdomen and pelvis without IV or oral contrast. Lack of IV or oral co ntrast limits evaluation of solid and hollow organ viscera. Coronal and sagittal reformats were perfo rmed. FINDINGS: LOWER CHEST: Cardiomegaly. Partial embolization of right breast prosthesis. Right middle lobe linear atelectasis. Additional similar linear atelectasis versus scarring within the medial aspects of the b ilateral lower lobes. Stable left lower lobe lung base 6.7 mm solid pulmonary nodule (series 4, image 15). ABDOMEN LIVER: Unremarkable noncontrast appearance. GALLBLADDER AND BILE DUCTS: Gallbladder is not visualized and is probably surgically absent. Pneumobi cristina demonstrated. No biliary ductal dilatation. PANCREAS: Unremarkable noncontrast appearance. SPLEEN: Unremarkable noncontrast appearance. ADRENAL GLANDS: Unremarkable noncontrast appearance.. KIDNEYS AND URETERS: No evidence of hydronephrosis . No right renal calculi. Nonobstructing left alexandre l 4 mm calculus. No perinephric fashioning. No hydroureter or ureteral calculus identified. PELVIS BLADDER: Unremarkable REPRODUCTIVE: The uterus is surgically absent. ABDOMEN & PELVIS STOMACH AND BOWEL: Stomach and duodenum are unremarkable. The appendix is within normal limits. Exten sive distal colonic diverticulosis without evidence for acute diverticulitis. No focal bowel wall thi ckening or surrounding inflammatory changes. No evidence of bowel obstruction. PERITONEUM: No evidence of pneumoperitoneum or free fluid. VASCULATURE: Mild atherosclerotic calcifications are present throughout the abdominal aorta and its b ranches. No evidence of aortic aneurysm. Pelvic phleboliths. MUSCULOSKELETAL: No acute osseous abnormalities. Degenerative changes of the pubic symphysis. Grade 1 anterior anterolisthesis of L4 on L5 without evidence of pars defects. LYMPH NODES: No gross evidence for lymphadenopathy. SOFT TISSUE/ABDOMINAL WALL: Small fat filled umbilical hernia. IMPRESSION: 1. No evidence for obstructive uropathy. 2. Nonobstructing left renal 4 mm calculus. 3. Colonic diverticulosis without evidence for acute diverticulitis. 4. Pneumobilia redemonstrated. 5. Stable left lower lobe pulmonary nodule dating back to 11/29/2022. Consider benign due to stability . No follow-up recommended. [facility], , 08/25/2024 3:38 PM
== END | disposition home or self-care (01) ==
LOC: RADCTMAIN 15:01
PROVIDERS: ATTEND Urology
DX: N20.0 Calculus of kidney (principal); K57.30 Diverticulosis of large intestine without perforation or abscess without bleeding; R91.1 Solitary pulmonary nodule; K83.8 Other specified diseases of biliary tract; N13.30 Unspecified hydronephrosis
CPT/HCPCS: 74176